=== PATIENT | female | born 1945 | race Caucasian/White ===

== ENCOUNTER 2022-06-11 12:00 | Outpatient (RCR) | payer BC, MEDICARE | END 2022-06-19 | LOC: M ST 12:00 | PROVIDERS: ATTEND Nurse Practitioner Family | DX: I69.320 Aphasia following cerebral infarction (principal) ==

== ENCOUNTER → 2022-07-20 | Outpatient (RCR) | payer MEDICARE | LOC: M PT 07-02 13:47 → M ST 07-02 14:21 → M PT 07-11 14:30 → M ST 07-18 13:05 → M PT 13:00 → M ST 13:06 | PROVIDERS: ATTEND Nurse Practitioner Family | DX: I00-I99 Diseases of the circulatory system (principal); R47.1 Dysarthria and anarthria ==

== ENCOUNTER 2022-08-09 13:28 | Outpatient (RCR) | payer MEDICARE | END 2022-08-19 | LOC: M PT 13:28 | PROVIDERS: ATTEND Nurse Practitioner Family | DX: I69.328 Other speech and language deficits following cerebral infarction (principal); I69.398 Other sequelae of cerebral infarction ==

== ENCOUNTER 2022-09-18 10:15 | Outpatient (RCR) | payer MEDICARE | END 2022-09-19 | LOC: M PT 10:15 | PROVIDERS: ATTEND Nurse Practitioner Family | DX: I69.328 Other speech and language deficits following cerebral infarction (principal); I69.398 Other sequelae of cerebral infarction ==

== ENCOUNTER 2022-10-18 12:54 | Outpatient (RCR) | payer MEDICARE | END 2022-10-19 | LOC: M PT 12:54 → M ST 12:54 | PROVIDERS: ATTEND Nurse Practitioner Family | DX: I69.320 Aphasia following cerebral infarction (principal) ==

== ENCOUNTER 2022-11-05 12:15 | Outpatient (RCR) | payer MEDICARE | END 2022-11-19 | LOC: M PT 12:15 | PROVIDERS: ATTEND Nurse Practitioner Family | DX: Z86.73 Personal history of transient ischemic attack (TIA), and cerebral infarction without residual deficits (principal) ==